=== PATIENT | female | born 1995 | race African-American/Black ===

== ENCOUNTER 2016-11-08 16:20 | Emergency (ER) | payer MEDICAID ==
[~2016-11-08] VITALS: Ht 162.6 cm; Wt 50.0 kg
[2016-11-08 16:23] VITALS: BP 128/53
== END 2016-11-08 17:00 | disposition left against medical advice (07) ==
LOC: ER 16:20
DX: R11.2 Nausea with vomiting, unspecified (principal); Z53.21 Procedure and treatment not carried out due to patient leaving prior to being seen by health care provider

== ENCOUNTER 2017-12-21 21:51 | Emergency (ER) | payer MEDICAID ==
[~2017-12-21] VITALS: Ht 162.6 cm; Wt 39.3 kg
[2017-12-22] MEDS ORDERED: ONDANSETRON HCL 4MG/2ML INJ IV STA (01:10)
[2017-12-22] MEDS ORDERED: SODIUM CHLORIDE 0.9% 1,000 ML IV ONE (01:10)
[2017-12-22] MEDS ORDERED: FAMOTIDINE 20MG/2ML VIAL IV ONE (01:15)
[2017-12-22 02:39] LABS: BASOPHILS % 0.5 % (0.0-2.0); EOSINOPHILS % 0.4 % (0.0-5.0); HEMATOCRIT. 43.6 % (36.0-48.0); HEMOGLOBIN. 13.9 g/dL (12.0-16.0); LYMPHOCYTES % 34.8 % (20.0-50.0); MEAN CORPUSCULAR HEMOGLOBIN 22.2 pg (28.0-32.0); MEAN CORPUSCULAR VOLUME 69.4 fL (81.0-99.0); MEAN PLATELET VOLUME 10.7 fl (7.4-10.4); MONOCYTES % 8.5 % (2.0-8.0); NEUTROPHILS % 55.8 % (40.0-76.0); PLATELET 160 x1000/uL (130-400); RED BLOOD CELL COUNT 6.29 mill/uL (4.2-5.4); RED CELL DISTRIBUTION WIDTH 13.6 % (11.6-14.6)
[2017-12-22 02:47] LABS: CLARITY URINE CLEAR (CLEAR); COLOR URINE DARK YELLOW (YELLOW); KETONES URINE 2+ (NEGATIVE); LEUKOCYTE ESTERASE URINE TRACE (NEGATIVE); NITRITE URINE NEGATIVE (NEGATIVE); OCCULT BLOOD URINE NEGATIVE (NEGATIVE); PH URINE 5.5 (4.5-8.0); PROTEIN URINE 1+ (NEGATIVE); SPECIFIC GRAVITY URINE 1.032 (1.005-1.030)
[2017-12-22 02:53] LABS: CHLORIDE 95 mEq/L (98-107)
[2017-12-22 03:24] LABS: PLATELET ESTIMATE NORMAL
[2017-12-22 04:04] LABS: B-HCG QUANTITATIVE 234336 mIU/mL (<3)
[2017-12-22 04:41] VITALS: BP 99/54
== END 2017-12-22 04:41 | disposition home or self-care (01) ==
LOC: ER 21:51
DX: O23.41 Unspecified infection of urinary tract in pregnancy, first trimester (principal); O26.891 Other specified pregnancy related conditions, first trimester; D64.9 Anemia, unspecified; Z3A.09 9 weeks gestation of pregnancy
CPT/HCPCS: 36415; 76801; 80053; 81003; 81025; 83690; 84702; 85025; 96374; 99285; J2405; J3490; J7030

== ENCOUNTER 2017-12-30 22:33 | Emergency (ER) | payer MEDICAID ==
[~2017-12-30] VITALS: Ht 162.6 cm; Wt 40.2 kg
[2017-12-30] MEDS ORDERED: SODIUM CHLORIDE 0.9% 1,000 ML IV ONE (23:35)
[2017-12-30] MEDS ORDERED: ONDANSETRON HCL 4MG/2ML INJ IV ONE (23:45)
[2017-12-31 00:13] LABS: BASOPHILS % 0.3 % (0.0-2.0); EOSINOPHILS % 0.3 % (0.0-5.0); HEMATOCRIT. 34.6 % (36.0-48.0); HEMOGLOBIN. 11.2 g/dL (12.0-16.0); LYMPHOCYTES % 22.8 % (20.0-50.0); MEAN CORPUSCULAR HEMOGLOBIN 22.3 pg (28.0-32.0); MEAN PLATELET VOLUME 9.5 fl (7.4-10.4); MONOCYTES % 8.3 % (2.0-8.0); NEUTROPHILS % 68.3 % (40.0-76.0); PLATELET 141 x1000/uL (130-400); RED BLOOD CELL COUNT 5.01 mill/uL (4.2-5.4); RED CELL DISTRIBUTION WIDTH 13.8 % (11.6-14.6)
[2017-12-31 00:15] LABS: CHLORIDE 102 mEq/L (98-107)
[2017-12-31 00:17] LABS: PLATELET ESTIMATE NORMAL
[2017-12-31 00:43] LABS: B-HCG QUANTITATIVE > 200000 mIU/mL (<3)
[2017-12-31 00:46] LABS: CLARITY URINE CLOUDY (CLEAR); COLOR URINE YELLOW (YELLOW); KETONES URINE 4+ (NEGATIVE); LEUKOCYTE ESTERASE URINE 1+ (NEGATIVE); NITRITE URINE NEGATIVE (NEGATIVE); OCCULT BLOOD URINE NEGATIVE (NEGATIVE); PROTEIN URINE 1+ (NEGATIVE); SPECIFIC GRAVITY URINE 1.027 (1.005-1.030)
[2017-12-31] MEDS ORDERED: NITROFURANTOIN 100MG M/M CAPSULE PO SCH (02:44)
[2017-12-31] MEDS ORDERED: METOCLOPRAMIDE HCL 10MG/2ML VIAL IV ONE (03:00)
[2017-12-31 03:16] VITALS: BP 109/67
== END 2017-12-31 03:18 | disposition home or self-care (01) ==
LOC: ER 22:33
DX: O21.0 Mild hyperemesis gravidarum (principal); O23.41 Unspecified infection of urinary tract in pregnancy, first trimester; Z3A.10 10 weeks gestation of pregnancy
CPT/HCPCS: 36415; 76805; 76810; 80053; 81003; 81025; 84702; 85025; 86850; 86900; 86901; 87077; 87086; 96361; 96374; 96375; 99285; J2405; J2765; J7030

== ENCOUNTER 2022-09-20 20:01 | Emergency (ER) | payer MEDICAID, OTHER ==
[~2022-09-20] VITALS: Ht 162.6 cm; Wt 47.0 kg
[2022-09-20 20:59] VITALS: BP 127/80; RESP 12; TEMP 98.5; O2SAT 100
[2022-09-20 21:01] VITALS: PULSE 83
== END 2022-09-20 22:19 | disposition left against medical advice (07) ==
LOC: ER 20:01
DX: Z53.21 Procedure and treatment not carried out due to patient leaving prior to being seen by health care provider (principal)
CPT/HCPCS: 99281